=== PATIENT | male | born 1935 | race Caucasian/White ===

== ENCOUNTER 2019-12-05 07:14 | Day surgery (SDC) | payer MEDICARE ==
[~2019-12-05] VITALS: Ht 188 cm; Wt 65.9 kg
[2019-12-05 07:41] LABS: CALCIUM 9.1 mg/dL (8.5-10.1); CARBON DIOXIDE 28.3 mmol/L (21.0-32.0); CREATININE - SERUM 1.6 mg/dL (0.6-1.3); POTASSIUM - SERUM 4.3 mmol/L (3.5-5.1)
[2019-12-05 07:52] LABS: HEMATOCRIT 44.7 % (42.0-54.0); HEMOGLOBIN 14.9 g/dL (13.5-17.5); MCH 29.7 pg (26.0-34.0); MCHC 33.3 g/dL (31.0-37.0); MEAN PLATELET VOLUME 8.7 fL (7.4-10.4); RBC 5.02 10x6/uL (4.20-6.10); RDW 13.3 % (11.5-14.5); WBC 5.1 10x3/uL (4.8-10.8)
[2019-12-05] MEDS ORDERED: COREG 3.1253.125 MG PO (07:54)
[2019-12-05] MEDS ORDERED: PROTONIX40 MG PO (07:54)
[2019-12-05] MEDS ORDERED: PROSCAR5 MG PO (07:54)
[2019-12-05] MEDS ORDERED: BAYER CHEWABLE81 MG PO (07:54)
[2019-12-05] MEDS ORDERED: ZANAFLEX4 MG PO (07:55)
[2019-12-05] MEDS ORDERED: HYTRIN10 MG PO (07:55)
[2019-12-05 08:19] VITALS: BP 130/65; Ht 188 cm; Wt 65.9 kg
--- NOTE | 2019-12-05 10:44 | NUR ---
DC INSTRUCTIONS GIVEN TO PT/SPOUSE. STATE UNDERSTANDING. DC'D IV CATH FULLY INTACT.
--- NOTE | 2019-12-05 10:56 | NUR ---
PT LEFT UNIT VIA WC AT 1051
--- NOTE | 2019-12-06 08:31 | OP ---
PATIENT NAME: BETH AGUIRRE MEDICAL RECORD: [id number] :37 LOCATION:D.OPS ADMISSION DATE: SURGEON: NICOLAS PARIKH DO DATE OF OPERATION: 12/05/2019 PROCEDURE: Colonoscopy with polypectomy. INDICATIONS FOR PROCEDURE: History of colon polyps, diverticulosis, screening colonoscopy. SCOPE: [employer] video pediatric colonoscope. MEDICATIONS: Propofol 350 mg IV per anesthesia. WITHDRAWAL TIME: 21 minutes. ESTIMATED BLOOD LOSS: Minimal. COMPLICATIONS: None. FINDINGS AND DESCRIPTION OF PROCEDURE: Informed consent was given. The patient was made comfortable with the above medication. After reaching an adequate level of sedation by slow IV push, the patient was placed on his left side. A digital rectal examination was performed and it was normal. The endoscope was then advanced under direct visualization through the rectum to the cecum, confirmed by the presence of the appendiceal orifice and ileocecal valve. The endoscope was slowly withdrawn. Mucosa was carefully examined. The prep quality was good. There were multiple diminutive polyps visualized on today's examination, which were removed. Two were located in the ascending colon. They measured 2-3 mm in diameter and were removed using hot forceps. In the cecum, there were 3 separate benign polyps, which measured approximately 2-3 mm in diameter, which were removed using hot forceps. In the descending and sigmoid colon, both, there was 1 polyp of each, both measuring approximately 2-3 mm in diameter, which were removed using cold forceps. There was evidence of moderate diverticulosis involving the sigmoid colon. Retroflexion was performed in the rectum with visualization of grade I internal hemorrhoids without bleeding. The endoscope was withdrawn from the patient. The patient tolerated the procedure well and there were no complications. IMPRESSION: 1. Multiple diminutive polyps as described above, removed using a combination of hot forceps and cold forceps. 2. Moderate diverticulosis of the sigmoid colon. 3. Grade I internal hemorrhoids without bleeding. PLAN AND RECOMMENDATIONS: 1. Discharge home when recovery parameters are met. 2. Follow up biopsy specimen results. 3. High fiber diet. 4. Continue current medications. 5. No further surveillance or screening colonoscopies are necessary based on the patient's age. TRANSINT:[id number] Voice Confirmation ID: [id number] DOCUMENT ID: [id number] OPERATIVE REPORT [id number] BETH AGUIRRE NICOLAS PARIKH DO at 0831 CC: [id number] DICTATION DATE: 12/05/19 1021 [facility]: 12/05/[address] [facility] 12/05/19 [id number] [place] [address]
== END 2019-12-05 10:51 | disposition home or self-care (01) ==
LOC: D.OPS 07:14
PROVIDERS: Anesthesiology; ATTEND Internal Medicine Gastroenterology
DX: K57.90 Diverticulosis of intestine, part unspecified, without perforation or abscess without bleeding (principal); Z12.11 Encounter for screening for malignant neoplasm of colon; Z86.010 Personal history of colon polyps; K63.5 Polyp of colon; E11.9 Type 2 diabetes mellitus without complications